=== PATIENT | female | born 1955 | race Caucasian/White ===

== ENCOUNTER 2017-06-25 06:02 | Inpatient (IN) | payer BC ==
[~2017-06-25] VITALS: Ht 152.4 cm; Wt 78.2 kg
[2017-06-25 06:37] LABS: BASOPHIL % 0.4 % (0-2); PLATELET COUNT 238 x10^3mcL (130-400); RED CELL DISTRIBUTION WIDTH 13.9 % (11.5-14.5)
[2017-06-25 06:42] LABS: CALCIUM 8.6 mg/dL (8.5-10.1); CARBON DIOXIDE 30.3 mmol/L (21-32); CHLORIDE SERUM 103 mmol/L (98-107); CREATININE SERUM 0.7 mg/dL (0.6-1.0); GFR1 > 60 mL/min; GLUCOSE SERUM 122 mg/dL (74-106); POTASSIUM SERUM 4.3 mmol/L (3.5-5.1); SODIUM SERUM 140 mmol/L (136-145)
[2017-06-25 08:07] LABS: T3 TOTAL 0.89 ng/mL
[2017-06-25 08:08] LABS: PHOSPHOROUS 3.4 mg/dL (2.5-4.9)
[2017-06-25 08:22] LABS: FREE T4 1.13 ng/dL (0.76-1.46); FREE THYROXINE INDEX 3.7 ug/dL (1.4-4.5); T4(THYROXINE) 10.6 ug/dL (4.7-13.3)
[2017-06-25] MEDS ORDERED: TOPAMAX25 MG PO (09:24)
[2017-06-25] MEDS ORDERED: JANUVIA100 M1 PO (09:28)
[2017-06-25] MEDS ORDERED: AMBIENPAK10 M1 PO (09:29)
[2017-06-25] MEDS ORDERED: ALPRAZOLAM0.25 MG PO (09:30)
[2017-06-25] MEDS ORDERED: LISINOPRIL10 MG PO (09:30)
[2017-06-25] MEDS ORDERED: CYMBALTA60 M1 PO (09:31)
[2017-06-25 09:46] VITALS: BP 147/66
[2017-06-25 10:34] LABS: microscopic required? YES; urine erythrocyte NEGATIVE (NEGATIVE)
[2017-06-25 10:56] LABS: AMPHETAMINE QUAL UR NONE DETECTED (NEG <=1000)
[2017-06-25 14:00] VITALS: BP 136/60
[2017-06-25 18:32] VITALS: BP 139/69
[2017-06-25 21:11] VITALS: BP 125/49
[2017-06-26 04:43] VITALS: BP 122/55
[2017-06-26 06:20] LABS: BASOPHIL % 0.3 % (0-2); CALCIUM 8.2 mg/dL (8.5-10.1); CARBON DIOXIDE 28.4 mmol/L (21-32); CHLORIDE SERUM 104 mmol/L (98-107); CREATININE SERUM 0.8 mg/dL (0.6-1.0); GFR1 > 60 mL/min; GLUCOSE SERUM 119 mg/dL (74-106); MAGNESIUM 2.1 mg/dL (1.8-2.4); PHOSPHOROUS 3.7 mg/dL (2.5-4.9); PLATELET COUNT 206 x10^3mcL (130-400); POTASSIUM SERUM 4.7 mmol/L (3.5-5.1); RED CELL DISTRIBUTION WIDTH 14.1 % (11.5-14.5); SODIUM SERUM 138 mmol/L (136-145)
[2017-06-26 10:28] VITALS: BP 141/69
[2017-06-26 13:50] VITALS: BP 144/52
[2017-06-26 16:40] VITALS: BP 137/63
[2017-06-26 20:03] VITALS: BP 117/56
[2017-06-26 21:12] VITALS: BP 109/46
[2017-06-27 05:55] LABS: BASOPHIL % 0.2 % (0-2); PLATELET COUNT 205 x10^3mcL (130-400); RED CELL DISTRIBUTION WIDTH 13.8 % (11.5-14.5)
[2017-06-27 06:01] VITALS: BP 120/49
[2017-06-27 06:21] LABS: CALCIUM 8.3 mg/dL (8.5-10.1); CARBON DIOXIDE 28.6 mmol/L (21-32); CHLORIDE SERUM 105 mmol/L (98-107); CREATININE SERUM 0.8 mg/dL (0.6-1.0); GFR1 > 60 mL/min; GLUCOSE SERUM 115 mg/dL (74-106); MAGNESIUM 2.1 mg/dL (1.8-2.4); PHOSPHOROUS 3.9 mg/dL (2.5-4.9); POTASSIUM SERUM 4.5 mmol/L (3.5-5.1); SODIUM SERUM 139 mmol/L (136-145)
[2017-06-27 08:00] VITALS: BP 130/78
[2017-06-27] MEDS ORDERED: LIPI20 PO (09:26)
[2017-06-27] MEDS ORDERED: LEVAQUIN750 MG PO (09:27)
[2017-06-27] MEDS ORDERED: LAC PO (09:28)
[2017-06-27 12:23] VITALS: BP 130/78
== END 2017-06-27 15:17 | disposition home or self-care (01) | DRG 205 ==
LOC: ED 06:02 → DU 07:01
PROVIDERS: Emergency Medicine; ADMIT Family Medicine
DX: M94.0 Chondrocostal junction syndrome [Tietze] (principal); I50.33 Acute on chronic diastolic (congestive) heart failure; N39.0 Urinary tract infection, site not specified; F32.3 Major depressive disorder, single episode, severe with psychotic features; E11.65 Type 2 diabetes mellitus with hyperglycemia; E78.5 Hyperlipidemia, unspecified; M06.9 Rheumatoid arthritis, unspecified; M79.7 Fibromyalgia; M19.90 Unspecified osteoarthritis, unspecified site; E11.51 Type 2 diabetes mellitus with diabetic peripheral angiopathy without gangrene; I11.0 Hypertensive heart disease with heart failure; G43.909 Migraine, unspecified, not intractable, without status migrainosus; E86.0 Dehydration; K52.9 Noninfective gastroenteritis and colitis, unspecified; F41.9 Anxiety disorder, unspecified; I34.0 Nonrheumatic mitral (valve) insufficiency; I07.1 Rheumatic tricuspid insufficiency; E83.51 Hypocalcemia; Z79.899 Other long term (current) drug therapy; Z88.2 Allergy status to sulfonamides; Z90.710 Acquired absence of both cervix and uterus
CPT/HCPCS: 82962; 83880; 84439; 90732; J0696; J2405; J3010; J7030; J7040; Q0092